=== PATIENT | male | born 1975 | race Caucasian/White ===

== ENCOUNTER → 2017-10-28 08:20 | Outpatient (CLI) | payer OTHER, SELFPAY ==
--- NOTE | 2017-10-28 08:29 | RAD_ITS ---
STUDY: X-RAY - LEFT HAND, ATTENTION FIRST FINGER REASON FOR EXAM: Male, 41 years old. Pain TECHNIQUE: 3 view(s) of the finger were obtained. COMPARISON: None. FINDINGS: Normal metacarpal head. Normal metacarpophalangeal joint. Normal proximal phalanx. Normal middle phalanx. There is a subtle cortical defect on the lateral view within the volar side of the distal phalanx which could potentially represent a nondisplaced fracture. There is mild degenerative arthrosis of the proximal interphalangeal joint. There is mild degenerative arthrosis of the distal interphalangeal joint. There is degenerative change at the carpometacarpal joint of the first digit. There is a suggestion of slight subluxation which may be chronic. RAD/Finger(s) Min 2 Views IMPRESSION: Degenerative change of the first digit from the carpometacarpal joint of the distal interphalangeal joint. Possible cortical variation versus nondisplaced fracture the distal phalanx. Electronically Signed: Gabriela Jean Baptiste MD at 16:58 EDT Tel , Service support ,
[2017-10-28 10:54] LABS: Anion Gap 6 (5-15); BUN 10 mg/dL (7-18); BUN/Creat Ratio 10.6 RATIO (10-20); Calcium,Total 8.8 mg/dL (8.5-10.1); Chloride 104 mmol/L (98-107); Cholesterol 162 mg/dL (200); Creatinine, Serum 0.94 mg/dL (0.70-1.30); EST Glomerular Filtration Rate 93 mL/min (>60); Est Glom Filt Rate - Afr Amer 112 mL/min (>60); Glucose 85 mg/dL (74-106); High Density Lipoprotein 55 mg/dL; Potassium 4.3 mmol/L (3.5-5.1); Sodium Level 140 mmol/L (136-145); Triglycerides 107 mg/dL; Very Low Density Lipoprotein 21 mg/dL (5-40)
== END ==
PROVIDERS: Family Provider Family Medicine; PCP Family Medicine; Visit Provider Family Medicine
DX: Z00.00 Encounter for general adult medical examination without abnormal findings (principal); M18.9 Osteoarthritis of first carpometacarpal joint, unspecified
CPT/HCPCS: 36415; 73140; 80048; 80061

== ENCOUNTER 2018-01-10 07:00 | Outpatient (RCR) | payer OTHER, SELFPAY ==
--- NOTE | 2017-11-29 11:58 | HP.OTEVAL ---
Patient's Visit Information AMOS OSORIO is a 41 year old M, referred to Occupational Therapy by Felicia Arechiga DO, with a diagnosis of CMC OA. Date of Evaluation: 11/29/17 Occupational Therapist: Ramila Beal - Subjective Subjective: Pt., Amos, arrived and noted that no major injury occured to L CMC. He first started noticing pain about 4-5 years ago. 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 He is L handed. Notes that had cortisone shot in September. - Pain Left Hand 1 Pain Intensity Range: 1, 9 - Objective Objective/Observation: No edema at this time. Some thenar atrophy through thenar eminence. Increased pain with fx pinch tasks. Somce increased hyperext of IP joint. Decreased strength of L dominant hand compared to R hand. No edema noted at this time. Concerns: Dropped off order to front desk auxiliary at Dr. Arechiga's office. They are to give to Dr. Peralta to fill out dosage she would like for Amos for iontophoressis. - ROM Wrist: flex 0-85, L 0-76; ext R 0-52, L 0-59 CMC: R 0-20, L 0-16 MP: R 0-56, L 0-57 IP: R 0-60, L -10-47 Radial Abduction: R 0-60, L 0-45 MP: WFL PIP: WFL DIP: WFL - Strength Merchandising Specialist: R 97, L 88 Lateral Pinch: R 24, L 15 Tripod Pinch: R 27, L 14 Tip-to-Tip Pinch: R 18, L 13 Strength Comments: some increased pain with tripod and tip. Educated to stop when feeling pain. - Sensation Sensation Comments: denies numbness and tingling at this time. 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 Goal:: Pt. to have not more than 1/10 pain during fx tasks with us eof splint as needed 4/5 trials 80% of the time by d/c. Goal:: Amos to increased fx pinch grasp to promote increased stability of CMC joint 4/5 trials 80% of the time to promote increased stability and decreased pain to return to PLOF by d/c. Goal:: Amos to be (I) to implement joint protect and hand ergonomics through use of comensatory and adaptive equipment to help promote joint integrity for work and ADl/IADLs to decrease pain by time of d/c. Goal:: Amos to be mod I to complete HEp and adaptations to help promote increased CMC integrity and joint stability 4/5 trials 80% of the time to promote increased performance and decreased pain by d/c. - Rehabilitation General Assessment: Pt., Amos, arrived for OT eval on this date. He exhibits decreased thumb ROM and strength at this time on L dominant side. Some starts of thenar wasting present. OT to focus on protective splinting, strength for CMC support, and pain management to promote increased use of L dominant hand without pain for work and ADl/IADls. Rehabilitation Potential: Good - Anticipated Interventions Anticipated Interventions: A/AAROM/PROM, Strengthening, Triggerpoint Release, Modalities, Orthoses, Joint Protection/Energy Conservation, Ergonomic Education, Fine Motor Coord/Denilson, ADL Training, Education re assistive Equipment, Caregiver Training, Home Program - Visit Plan Frequency: 2x /Week Duration: 4 Weeks General Plan: OT to work on protective splint and compensatory methods to promote increased CMC stability. Lumbrical, thenar eminence, and interossei strength to promote increased stability of CMC and strength of L dominant hand for all ADl/IADls. Will be trialing K-tape during workday to promote normal use of hand with pain management and increased awareness of erogonmic and thumb. TEXT: Thank you for the opportunity to evaluate your patient. For Medicare and Medicare HMO plans, please review the plan of care and approve it. It will need to be FAXED BACK to us at [phone] for Medicare purposes. Please let me know if there are questions or concerns regarding this plan of care. Physician Signature: Date:
--- NOTE | 2017-12-27 07:43 | HP.OTREVAL ---
Felicia Arechiga, DO, It has been my pleasure to treat AMOS OSORIO over the last 9 visits for CMC OA. Please see the progress note below for an update on the occupational therapy plan of care! Subjective: Arrived with no KT tape in place and noted that still getting dull aches. Feels dexamethasone helped more once he took it off he noted thats when I felt the difference. Explained he feels about 75% back to 100%. Objective/Function: Reassessment of L affected thumb completed on this date. ROM is as follows: wrist flexion R 0-75, L 0-80; ext R 0-53, L 0-50; thumb opposition R 0-13, L 0-14; MP flexion R 11-50, R 5-64; IP R 0-48, L -7-25; radial abduction. Strength is as follows: semiconductor packages leak tester R 104, L 91; lateral R 22, L 20; Tripod R 27, L 14; tip pinch R 23, L 16. He has progressed in strength at this time. Progressing towards goals. Plan Frequency: 2x /Week Duration: 4 Weeks Plan: continue POC for 2x 2 weeks to continue dexamethasone treatments. He is completing follow up with Dr. Arechiga Saturday in which Pt. reports he will recieve cortisone injection. Further communication to be completed with Dr. Martínez. Dexamethasone will be suspended post cortisone treatment unless otherwise instructed. Additionally, order for CMC push still needs to be recieved to help Pt. count toward deductible. Goals - Goals Goal:: Amos to increased L dominant semiconductor packages leak tester strength by 15 lbs to promote increased stability of L CMC thumb for work and FMC related tasks 4/5 trials 80% of the time by d/c. Goal:: Pt. to have not more than 1/10 pain during fx tasks with us eof splint as needed 4/5 trials 80% of the time by d/c. Goal:: Amos to increased fx pinch grasp to promote increased stability of CMC joint 4/5 trials 80% of the time to promote increased stability and decreased pain to return to PLOF by d/c. Goal:: Amos to be (I) to implement joint protect and hand ergonomics through use of comensatory and adaptive equipment to help promote joint integrity for work and ADl/IADLs to decrease pain by time of d/c. Goal:: Amos to be mod I to complete HEp and adaptations to help promote increased CMC integrity and joint stability 4/5 trials 80% of the time to promote increased performance and decreased pain by d/c. Anticipated Interventions Anticipated Interventions: A/AAROM/PROM, Strengthening, Triggerpoint Release, Modalities, Orthoses, Joint Protection/Energy Conservation, Ergonomic Education, Fine Motor Coord/Denilson, ADL Training, Education re assistive Equipment, Caregiver Training, Home Program Please do not hesitate to contact me at [phone] by phone or if you have questions or concerns regarding this new plan of care! Sincerely, Ramila Beal
--- NOTE | 2017-12-27 07:43 | HP.OTCOM ---
OT Communication Note 12/27/[address] Felicia Arechiga, DO Recent re-evaluation completed for Gilles Hu. Please refer to re-evaluation for additional measurements for ROM and strength. Gilles has received two and will have a total of three dexamethasone treatments prior to his follow up visit with Dr. Arechiga, SaturdayJanuary 01. He reports some increased relief post first dexamethasone treatment. Once receiving cortisone shot these treatments will be discontinued unless otherwise instructed. Additionally, Gilles has had success with completion of KT taping to promote support to CMC while at work and home. Handout and instructed has been provided on where to purchase such take around the local area. He may also benefit from Push CMC brace to complete wearing at home. He has also been educated on this brace and handout provided. If agreeable please provide him with order for brace at appointment as he would like purchase of brace to be counted towards deductible. Sincerely, Ramila Beal, OTR/L Contact Information
--- NOTE | 2017-12-27 07:51 | HP.OTCOM_ITS ---
OT Communication Note 12/27/[address] Felicia Arechiga, DO Recent re-evaluation completed for Gilles Hu. Please refer to re- evaluation for additional measurements for ROM and strength. Gilles has received two and will have a total of three dexamethasone treatments prior to his follow up visit with Dr. Arechiga, SaturdayJanuary 01. He reports some increased relief post first dexamethasone treatment. Once receiving cortisone shot these treatments will be discontinued unless otherwise instructed. Additionally, Gilles has had success with completion of KT taping to promote support to CMC while at work and home. Handout and instructed has been provided on where to purchase such take around the local area. He may also benefit from Push CMC brace to complete wearing at home. He has also been educated on this brace and handout provided. If agreeable please provide him with order for brace at appointment as he would like purchase of brace to be counted towards deductible. Sincerely, Ramila Beal, OTR/L Contact Information
--- NOTE | 2018-01-10 07:50 | HP.OTDCSUM ---
HP - OT D/C Summary It has been my pleasure to treat GILLES OSORIO under orders from Felicia Arechiga DO, for the diagnosis of CMC OA for a total of 13 visit(s). Please see the following information for a summary of their discharge status. - Overall Improvement % Improvement: 80 - Objective Objective/Function: Completed reassessment. He has progressed from both inital and re-eval. Measurements are as follows: ROM wrist flexion R 0-71, L 0-81; ext R 0-50, L 0-46; thumb radial abduction R 0-61, L 0-50; opposition R 0-15, L 0-15. Strength measurements are as follows: R 120, L 110; lateral pripod R 26, L 21; tripod pinch R 24, L 20; tip pinch R 23, L 18 lbs. Still slight pain with fx pinch patterns. 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 Goal:: Pt. to have not more than 1/10 pain during fx tasks with us eof splint as needed 4/5 trials 80% of the time by d/c. Goal:: Gilles to increased fx pinch grasp to promote increased stability of CMC joint 4/5 trials 80% of the time to promote increased stability and decreased pain to return to PLOF by d/c. Goal:: Gilles to be (I) to implement joint protect and hand ergonomics through use of comensatory and adaptive equipment to help promote joint integrity for work and ADl/IADLs to decrease pain by time of d/c. Goal:: Gilles to be mod I to complete HEp and adaptations to help promote increased CMC integrity and joint stability 4/5 trials 80% of the time to promote increased performance and decreased pain by d/c. - Plan Plan: Pt. to be d/c'd today. Completed 6 dexamethosone treatments. He is to follow up with Dr. Arechiga. Called Dr. Arechiga's office a few weeks ago and if she feels comfortable he would benefit from script for CMC push brace to support CMC while around home. He can wear brace at home and KT tape for work for additional suppor tof CMC. He verbalized understanding of all topics. Handouts provided. Noted KT tape in truck and will start using. Variable carryover on own during therapy. - D/C Information Discharge Comments: Gilles has completed 12 visits (excluding evaluation) for therapy. Thumb and strength fo L dominant hand has progress. Thumb remains slightly painful with typically 1/10 pain with pinch but continues to complete all ADL/IADL tasks. Notes 80% imporvementpst OT and 6 dexamethsone treatments. He has had limited carryover of KT tape but recently reports getting roll. Noted improvement when OT completed taping prior to work tasks. He has handout to complet taping on his own. If there are questions or concerns regarding this patient's occupational therapy, please fell free to call me at [phone]. Thank you for the referral of this patient. Sincerely, Ramila Beal
== END 2018-01-10 14:16 | disposition home or self-care (01) ==
LOC: OT 07:00
PROVIDERS: Family Provider Family Medicine; PCP Family Medicine; Visit Provider Orthopaedic Surgery
DX: M18.12 Unilateral primary osteoarthritis of first carpometacarpal joint, left hand (principal)
CPT/HCPCS: 97035; 97110; 97166; 97168; 97530

== ENCOUNTER 2018-02-24 23:54 | Emergency (ER) | payer OTHER, SELFPAY ==
[2018-02-24 23:54] VITALS: BP 139/86; PULSE 79; RESP 18; TEMP 36.8; O2SAT 98; BMI 26.3
--- NOTE | 2018-02-25 00:27 | CT_ITS ---
STUDY: CT ABDOMEN AND PELVIS WITHOUT CONTRAST REASON FOR EXAM: Male, 42 years old. Right flank pain RADIATION DOSAGE (If Supplied By Facility): CTDIvol = ( 7.67 ) mGy, DLP = ( 396.58 ) mGycm TECHNIQUE: Transaxial images were obtained from the dome of the diaphragm to the symphysis pubis without oral contrast, and without intravenous contrast. Sagittal and coronal images were reconstructed. Individualized dose optimization techniques were used for this CT. COMPARISON: None. FINDINGS: There is a slight focal right lower lobe consolidation suspicious for pneumonia. The visualized portions of the heart are within normal limits. Normal liver. Normal gallbladder and extrahepatic biliary system. Normal spleen. Normal pancreas. Normal bilateral adrenal glands. Normal right kidney. Normal left kidney. Normal visualized stomach. There is minimal distention of the small bowel. There is mild wall thickening of the small bowel in the left upper quadrant image #56 formal views. There is abundant stool in the colon. The appendix is visualized and appears normal. There is diffuse atherosclerotic calcification of the abdominal aorta, without a demonstrated aneurysm. Normal inferior vena cava. Normal retroperitoneum. The bladder is distended. The bladder measures 11.1 x 9.8 x 11.7 cm. Normal visualized prostate gland. There is a small umbilical hernia containing fat. There is degenerative change of the lumbar spine significant L4-L5 with facet arthropathy and disc space narrowing. There is mild/moderate neural foramina narrowing. CT/Abdomen/Pelvis without Cont IMPRESSION: No evidence of renal ureteral bladder calculi. Constipation. Right lower lobe consolidation suspicious for pneumonia. No evidence of appendicitis. Degenerative change lumbar spine. Incidental visualization mild thickening of the wall of the small bowel which a follow-up contrast study would be suggested. Consider mild enteritis versus peristalsis cannot entirely exclude focal underlying atypia. N.B. : The above information has been verbally conveyed by Gabriela Jean Baptiste MD to Deepak Palmer , Covering Physician, on 02/25/2018 01:22:14 (ET). Electronically Signed: Gabriela Jean Baptiste MD at 1:17 EDT Tel , Service support , N.B. : The above information has been verbally conveyed by Gabriela Jean Baptiste MD to Deepak Palmer , [facility] Physician, on 02/25/2018 01:22:14 (ET).
--- NOTE | 2018-02-25 00:29 | ED.DCSUM_ITS ---
- ER Visit Summary Date of Service: 02/25/18 Chief Complaint: [] Right flank pain History of Present Illness: The patient is a 42 M presents with right flank pain that started 2 hours ago. He awoke with it. Continuous sharp pain. Current severity is moderate. It is relieved somewhat by putting pressure on it. Denies nausea vomiting or diarrhea. No home treatment. Denies any urinary symptoms. No trauma. He is on Fondoparinoux DVTs in the past. He gives himself daily injections. He has never had a recent blood clot. He has never had a kidney stone. Physical Examination: [] Vital signs reviewed General: Well-nourished well-developed Head: Normocephalic atraumatic Eyes: Pupils equal round and reactive to light extraocular movements intact ENT: TMs clear no hemotympanum no trauma Neck: Nontender full range of motion Cardiovascular: Regular rate rhythm no murmurs normal S1-S2 Respiratory: No distress clear to auscultation bilaterally chest nontender Abdomen: Soft nontender nondistended normal bowel sounds no masses Back: Nontender no CVA tenderness Extremities: Nontender active range of motion ?4 extremities no trauma Skin: Normal color no trauma Neuro alert oriented cranial nerves II through XII intact normal strength sensation reflexes Test Results: [] Emergency Department Course and Treatment: [] Patient given IV fluids, Zofran, Toradol, morphine. Lab work and CT abdomen pelvis obtained. CT abdomen pelvis showed questionable infiltrate right lower lobe. Lab work showed no acute abnormalities. Patient given IV fluid bolus. Pain in her control. CT Jenifer of the chest shows right-sided PEs. No heart strain. No central embolism. Patient resting comfortably on reevaluation. Discussed with the hospitalist who happens to be the patient's PCP. He would like the patient to follow-up as an outpatient with him in the office (Dr. Espinal). He is going to help set up an IVC filter placement with vascular surgery as an outpatient. The patient is hemodynamically stable. Pulse ox 98%. Heart rate 79. I do not feel he needs to be admitted neither does his family doctor/hospitalist. Will be discharged on Eliquis. We will switch him over to this therapy. He will stop the injectable. 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 He will return if he worsens. Given a short course of Percocet. Treatment Plan: [] Disposition: [] Impression: [] Right-sided pulmonary embolism This note was generated with [employer] dictation software. It may contain incorrect words, spelling, and punctuation that were not noted in review of the chart prior to signing ED Disposition - Plan for ED Patient: Chief Complaint: Flank Pain Prescriptions: Apixaban [Eliquis] 5 mg PO BID #74 tab Referrals: Edd Ross MD [Primary Care Provider] -
[2018-02-25] MEDS: Morphine 4 MG/ML Syringe IV (00:44)
[2018-02-25] MEDS: Ondansetron 4 MG/2 ML Vial IV (00:45)
[2018-02-25] MEDS: Ketorolac 30 MG/ML Syringe IV (00:45)
[2018-02-25] MEDS: 0.9% Normal Saline 1,000 ML 250 ML IV (00:46)
[2018-02-25 00:51] LABS: Absolute Lymphocyte Count 1.83 X10^3/ul (0.83-4.51); Absolute Neutrophil Count 3.5 X10^3/uL (2.0-7.7); Basophil# 0.02 X10^3/uL; Basophil% 0.3 % (0-1); Eosinophil# 0.09 X10^3/uL; Eosinophils% 1.5 % (0-5); Hematocrit 40.5 % (40-54); Hemoglobin 14.2 g/dl (13.0-16.5); Lymphocyte # 1.83 X10^3/ul (4.0); Lymphocyte % 29.8 % (19-41); Mean Corp Hgb Conc 35.1 g/gl (32-36); Mean Corpuscular Hgb 33.2 pg (27.0-32.0); Mean Corpuscular Volume 94.6 fL (80-94); Monocyte# 0.67 X10^3/uL; Monocyte% 10.9 % (0-10); Neutrophil # 3.52 X10^3/uL (2.7-7.7); Neutrophil % 57.3 % (47-70); Platelet Count 167 K/mm3 (150-450); RBC Distribution Width CV 12.3 % (11.6-14.6); Red Blood Count 4.28 M/mm3 (4.6-6.2); White Blood Count 6.1 K/mm3 (4.4-11.0)
[2018-02-25 00:56] LABS: POSITIVE COUNT NO; POSITIVE DIFFERENTIAL NO; POSITIVE MORPHOLOGY NO
[2018-02-25 01:09] LABS: Anion Gap 8 (5-15); BUN 12 mg/dL (7-18); BUN/Creat Ratio 12.3 RATIO (10-20); Calcium,Total 8.4 mg/dL (8.5-10.1); Chloride 105 mmol/L (98-107); Creatinine, Serum 0.97 mg/dL (0.70-1.30); EST Glomerular Filtration Rate 89 mL/min (>60); Est Glom Filt Rate - Afr Amer 108 mL/min (>60); Estimated Creatinine Clearance 106.67 ml/min; Glucose 91 mg/dL (74-106); Sodium Level 141 mmol/L (136-145)
--- NOTE | 2018-02-25 01:41 | CT_ITS ---
STUDY: CTA CHEST REASON FOR EXAM: Male, 42 years old. Back pain RADIATION DOSAGE (If Supplied By Facility): CTDIvol = ( 14.38 ) mGy, DLP = ( 433.63 ) mGycm TECHNIQUE: The examination was performed with the intravenous administration of 100ML ml of Isovue 370 contrast material. Post-processing of the angiographic images was performed, with multiplanar reformation and 3D reconstruction. Individualized dose optimization techniques were used for this CT. COMPARISON: None. FINDINGS: Thoracic aorta is normal in caliber. There is NO aneurysm or dissection. The heart size is normal. There is NO pericardial effusion. There are large pulmonary emboli in the mid and distal branches of the RIGHT pulmonary artery. There are NO obvious LEFT pulmonary emboli. There are borderline mediastinal and hilar lymph nodes. There are infiltrates in the RIGHT lower lung. Lungs are well expanded. There is mild COPD. There is NO effusion or pneumothorax. There are scattered bilateral subcentimeter noncalcified pulmonary nodules which could be granulomas. The thoracic spine, sternum and ribs are intact. CT/CTA Chest W/WO Contrast IMPRESSION: There are large pulmonary emboli in the mid and distal branches of the RIGHT pulmonary artery. There are NO obvious LEFT pulmonary emboli. There are infiltrates in the RIGHT lower lung. There are scattered bilateral subcentimeter noncalcified pulmonary nodules which could be granulomas. N.B. : The above information has been verbally conveyed by Isael Millan MD to Deepak Palmer Covering Physician, on 02/25/2018 03:30:53 (ET). Electronically Signed: Isael Millan MD at 2:59 EDT , Service support , N.B. : The above information has been verbally conveyed by Isael Millan MD to Deepak Palmer Covering Physician, on 02/25/2018 03:30:53 (ET).
[2018-02-25] MEDS: 0.9% Normal Saline 1,000 ML 1000 ML IV (01:50)
--- NOTE | 2018-02-25 03:15 | ED.DEP ---
ED Disposition - Plan for ED Patient: Disposition: Home or Assisted Living Chief Complaint: Flank Pain Instructions: Pulmonary Embolism Prescriptions: Oxycodone HCl/Acetaminophen [Percocet 5/325] 1 tab PO Q6H PRN PRN 3 Days #12 tab PRN Reason: Pain Apixaban [Eliquis] 5 mg PO BID #74 tab Referrals: Edd Ross MD [Primary Care Provider] - Von Vitale MD [STAFF PHYSICIAN] -
[2018-02-25 03:34] VITALS: BP 123/78; PULSE 65; O2SAT 97
[2018-02-25] MEDS: APIXABAN 5 MG TABLET 10 MG PO (03:40)
== END 2018-02-25 03:45 | disposition home or self-care (01) ==
PROVIDERS: Emergency Provider Emergency Medicine; Family Provider Family Medicine; PCP Family Medicine
DX: I26.99 Other pulmonary embolism without acute cor pulmonale (principal); Z86.718 Personal history of other venous thrombosis and embolism; Z79.01 Long term (current) use of anticoagulants; Z72.0 Tobacco use
CPT/HCPCS: 71275; 74176; 80048; 85025; 96361; 96374; 96375; 99282; J7030; Q9967; A4216; J2405

== ENCOUNTER 2018-02-25 12:35 | Emergency (ER) | payer OTHER, SELFPAY ==
[2018-02-25 12:37] VITALS: BP 127/71; PULSE 80; RESP 16; TEMP 37.2; O2SAT 97; BMI 29.4
[2018-02-25 14:37] VITALS: PULSE 68; RESP 20; O2SAT 96
--- NOTE | 2018-02-25 14:39 | ED.VISSUMM ---
- ER Visit Summary Date of Service: 02/25/18 Chief Complaint: Right-sided chest pain, new diagnosis of pulmonary embolism History of Present Illness: The patient is a 42 M who was diagnosed with right sided pulmonary emboli this morning who presents with continued chest pain and inability to follow-up with the vascular surgeon. Patient states he was discharged on Eliquis and had the dose given to him this morning. He called the vascular surgeon to whom he was referred and was told that surgeon only does varicose veins. Patient states he spoke to the nurse that his doctor's office and was advised to come back to the emergency department. Patient has no change in his condition. No shortness of breath but worsening pain with deep inspiration. Pain is currently well controlled with Percocet the patient took prior to arrival. 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 Physical Examination: Vital signs: afebrile, hemodynamically stable, no hypoxia on room air General: well nourished, well developed, in no distress Skin: warm, dry, no rash, no pallor HEENT: normocephalic and atraumatic; PERRL, EOMI, moist mucous membranes Cardiovascular: regular rate and rhythm without murmurs, no peripheral edema, 2+ pulses all distal extremities Respiratory: No increased work of breathing, lungs are clear to auscultation bilaterally, no rales, rhonchi or wheezing Abdominal: Abdomen is soft, nontender with normoactive bowel sounds, no guarding or rebound, no masses MSK: Moves all extremities, no deformities, normal strength Neuro: Awake and alert, oriented ?4. No facial droop, sensation and motor function intact and symmetric Test Results: [] Emergency Department Course and Treatment: Patient was offered and declined pain medication at this time. He has no complaints at this time other than a low level of right-sided chest pain that is currently well controlled with his home Percocet. Patient has no tachycardia or hypoxia on exam. He is resting comfortably in bed. He came to the emergency department solely because he could not get follow-up with a surgeon for IVC filter placement. Patient was discussed with Dr. Santamaria, loan operations manager for Dr. Espinal, to obtain a new surgery referral. She requested patient be referred to Dr. Reyes. he was then discussed with Dr. Reyes, who states patient can make an appointment for tomorrow, and the earliest he may be able to do the IVC is on . However he wants to discuss the patient with the patient's electroencephalographic technologist first to make sure an IVC filter is the appropriate treatment. Patient's electroencephalographic technologist information (Dr. Lockett at [facility] [place]) was obtained from the patient and conveyed to Dr. Reyes's office. Discussed with patient the importance of medication compliance, and he already has his Eliquis prescription filled. He will take it as prescribed. We discussed return precautions. Patient discharged home. Treatment Plan: [] Disposition: [] Impression: Pulmonary emboli, right side, subsequent visit This note was generated with [employer] dictation software. It may contain incorrect words, spelling, and punctuation that were not noted in review of the chart prior to signing ED Disposition - Plan for ED Patient: Disposition: Home or Assisted Living Chief Complaint: Chest Other Instructions: Pulmonary Embolism, ED DVT Referrals: Edd Ross MD [Primary Care Provider] - As Needed Oren Reyes MD [STAFF PHYSICIAN] - 1 Day Additional Instructions: Take the Eliquis exactly as prescribed. Call Dr. Reyes, the surgeon, this afternoon to make an appointment for tomorrow. If you have any worsening of your condition or any new concerning symptoms, please return immediately to the emergency department for another evaluation.
--- NOTE | 2018-02-25 15:19 | NURSING ---
CALLED [facility] FOR HEMOLOGY TALKED TO JULITO IN HIM CALLED DR Shanna QUISPE OFFICE WITH DR NAME IT IS DR MONTSE DODSON
--- NOTE | 2018-02-25 15:26 | ED.DEP ---
ED Disposition - Plan for ED Patient: Disposition: Home or Assisted Living Chief Complaint: Chest Other Instructions: ED DVT, Pulmonary Embolism Referrals: Oren Reyes MD [STAFF PHYSICIAN] - 1 Day Edd Ross MD [Primary Care Provider] - As Needed Additional Instructions: Take the Eliquis exactly as prescribed. Call Dr. Reyes, the surgeon, this afternoon to make an appointment for tomorrow. If you have any worsening of your condition or any new concerning symptoms, please return immediately to the emergency department for another evaluation.
[2018-02-25 15:34] VITALS: BP 114/76; PULSE 73; RESP 19; O2SAT 96
== END 2018-02-25 15:37 | disposition home or self-care (01) ==
PROVIDERS: Emergency Provider Emergency Medicine; Family Provider Family Medicine; PCP Family Medicine
DX: I26.99 Other pulmonary embolism without acute cor pulmonale (principal); Z86.718 Personal history of other venous thrombosis and embolism; Z79.01 Long term (current) use of anticoagulants
CPT/HCPCS: 99282

== ENCOUNTER 2019-04-20 04:34 | Emergency (ER) | payer OTHER, SELFPAY ==
[2019-04-20 04:35] VITALS: BP 134/98; PULSE 83; RESP 16; TEMP 36.9; O2SAT 98; BMI 25.7
[2019-04-20 04:40] VITALS: O2SAT 98
--- NOTE | 2019-04-20 04:46 | CT_ITS ---
We are attempting to reach an attending provider to discuss findings. An addendum with communication details will be sent when the communication is complete. STUDY: CTA CHEST REASON FOR EXAM: Male, 43 years old. Right-sided chest pain, history of PE and DVT. RADIATION DOSAGE (If Supplied By Facility): CTDIvol = ( 12.61 ) mGy, DLP = ( 480.28 ) mGycm TECHNIQUE: The examination was performed with the intravenous administration of 100 IV Isovue 370. Post-processing of the angiographic images was performed, with multiplanar reformation and 3D reconstruction. Individualized dose optimization techniques were used for this CT. COMPARISON: CT chest 02/25/2018 FINDINGS: There are filling defects in the bilateral inferior pulmonary arteries left greater than right.. Normal thoracic aorta and visualized great vessels. There is no demonstrated aortic dissection. Normal heart and pericardium. Normal mediastinum. Right greater than left hilar soft tissue suspicious for lymphadenopathy, more pronounced on current exam. Normal visualized trachea and bronchi. The lungs are well expanded. There is new airspace disease along the peripheral right middle lobe lateral segment with alveolar distribution and appearance, pleural thickening, volume loss along the bilateral peripheral lower lobes, peripheral airspace opacification in the lingula, increased since previous exam. No cavitary lesion or central aeration to suggest infarct detected. There is stable mild symmetric paraseptal emphysema. There are multiple stable nodular densities in the right upper lobe 0.3 cm image 186 image 190, vague nodular density right upper lobe superior to the minor fissure 0.5 cm image 149, 0.4 cm right middle lobe less than 0.4 cm nodules in the left lower lobe, nodules associated with the left major fissure, tubular stable noncalcified soft tissue 0.4 x 0.8 cm posterior medial right upper lobe image 182. Pleural thickening or trace effusion bilaterally. Normal chest wall structures. Age-appropriate osseous structures. Normal visualized upper abdomen. CT/CTA Chest W/WO Contrast IMPRESSION: Bilateral inferior pulmonary arterial embolic disease. Airspace disease with peripheral distribution as above possibly related to pulmonary emboli, no cavitation or infarct seen at this time. Stable paraseptal emphysema, multiple noncalcified scattered parenchymal nodules. Electronically Signed: Quyen Gastelum MD at 5:57 EDT , Service support ,
--- NOTE | 2019-04-20 04:46 | EKG12_ITS ---
Test Reason : SOB Blood Pressure : / mmHG Vent. Rate : 077 BPM Atrial Rate : 077 BPM P-R Int : 144 ms QRS Dur : 090 ms QT Int : 362 ms P-R-T Axes : 038 -24 036 degrees QTc Int : 409 ms Normal sinus rhythm Leftward Gatzke Confirmed by BLANCHE ROMAN, MIGUEL ([id number]), newspaper photo editor IRLANDA CUMMINGS ([id number]) on 04/21/2019 11:40:29 AM Referred By: EDU Confirmed By:MIGUEL MANCIA MD
--- NOTE | 2019-04-20 04:47 | ED.DCSUM_ITS ---
History of Present Illness Chief Complaint: Shortness of Breath Informant: Patient Narrative: Stated he developed right-sided chest pain yesterday morning. It was not significantly bad but then yesterday evening at 11:00 approximately 6 hours ago she started having pretty significant sharp pleuritic right-sided chest pain. He has had this in the past with a pulmonary embolism. I saw him last summer and he was diagnosed with a pulmonary embolism while taking fondaparineaux. 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 He has had no problems until today. No home treatment. Denies any shortness of breath but states hard to take a deep breath due to pain. Patient denies any cardiac risk factors except for a 20-year pack smoking history. Not have an IVC filter. He does have protein C deficiency as well as factor V Leiden that predisposes him to blood clots. He is only however had one PE. He has had multiple DVTs in the past. She denies any recent long trips. Past Medical History - Allergies and Home Meds Allergies/Adverse Reactions: Allergies No Known Allergies Allergy (Verified 04/20/19 04:37) Prior records reviewed: Yes Past Medical History: - - Ulnar embolism, DVT Surgical History: noncontributory Smoking Status: Former smoker Alcohol: None Drugs: None Review of Systems General: Denies: Chills, Fever, Sweats Eyes: Denies: Visual changes - bilaterally, Diplopia ENT: Denies: Rhinorrhea, Sore throat Cardiovascular: Reports: Chest pain. Denies: Palpitations Respiratory: Denies: Dyspnea, Cough, Dyspnea on exertion Gastrointestinal: Denies: Abdominal pain, Nausea, Vomiting, Diarrhea, Melena, Hematochezia Genitourinary: Denies: Dysuria, Hematuria, Frequency Musculoskeletal: Denies: Back pain, Extremity Pain Skin: Denies: Rash, Wounds Neurological: Denies: Headache, Weakness, Numbness Physical Exam Vital Signs/Narrative: Vital Signs Temp Pulse Resp BP Pulse Ox 04/20/19 04:35 98.4 F 83 16 134/98 H 98 General: Well nourished, Well developed, No Acute Distress Head: Normocephalic, Atraumatic Eyes: Perrl, EOMI ENT: Moist mucous membranes, No rhinorrhea Neck: Supple, Nontender Cardiovascular: Regular rate, Regular rhythm, No murmurs Respiratory: No distress, CTA bilaterally, Chest nontender Abdomen: Soft, Nontender, Nondistended, Normal bowel sounds Back: Nontender, Normal Inspection Extremities: Nontender, No edema Skin: Normal color, No rash Neurological: Alert, Oriented x3, Cranial nerves II-XII grossly intact, Normal Strength, Normal Sensation Psychological: Normal affect, Normal Mood Diagnostic/Tx/Re-eval - Medical Decision Making Lab work EKG CTA of the chest obtained. Patient given IV fluids and a dose of morphine IV. Lab work shows no acute abnormalities including CBC BMP and negative troponin. CT Jenifer of the chest obtained shows bilateral inferior lower bullae left greater than right. Patient remains hemodynamically stable. Is not tachycardic. Normal pulse ox on room air. Patient stated he has not missed any blood thinners. Discussed with the hospitalist. Her surgeon Dr. Reyes who normally does IVC filters is out of town. Therefore the patient will need to be transferred. The patient would like to be transferred to [facility]. He has all care insurance. He does not want to go to the [place] as he is [place] insurance. Will be started on a heparin bolus followed by drip for treatment of his pulmonary embolism - Critical Care Time Critical care time (excluding procedures): 30-74 minutes ED Disposition - Plan for ED Patient: Instructions: Pulmonary Embolism
[2019-04-20 04:52] LABS: Absolute Lymphocyte Count 2.04 X10^3/uL (0.83-4.51); Absolute Neutrophil Count 3.9 X10^3/uL (2.0-7.7); Basophil# 0.04 X10^3/uL; Basophil% 0.6 % (0-1); Eosinophil# 0.12 X10^3/uL; Eosinophils% 1.8 % (0-5); Hemoglobin 15.6 g/dL (13.0-16.5); Lymphocyte # 2.04 X10^3/ul (4.0); Lymphocyte % 31.1 % (19-41); Mean Corp Hgb Conc 34.7 g/dL (32-36); Mean Corpuscular Hgb 33.3 pg (27.0-32.0); Mean Corpuscular Volume 96.2 fL (80-94); Mean Platelet Vol. 8.9 fl (6.2-12.0); Monocyte# 0.51 X10^3/uL; Monocyte% 7.8 % (0-10); NRBC Flagged by Analyzer 0 % (0-5); Neutrophil # 3.85 X10^3/uL (2.7-7.7); Neutrophil % 58.5 % (47-70); Platelet Count 204 K/mm3 (150-450); RBC Distribution Width CV 12.3 % (11.6-14.6); RBC Distribution Width SD 43.6 fl (35.1-43.9); Red Blood Count 4.68 M/mm3 (4.6-6.2); White Blood Count 6.6 K/mm3 (4.4-11.0)
[2019-04-20] MEDS: morphine 8 MG/ML Syringe IV (04:52)
[2019-04-20] MEDS: 0.9% Normal Saline 1,000 ML 1000 ML IV (04:53)
[2019-04-20 04:54] VITALS: O2SAT 98
[2019-04-20 05:06] LABS: Anion Gap 7 (5-15); BUN 10 mg/dL (7-18); BUN/Creat Ratio 9.8 RATIO (10-20); Calcium,Total 8.5 mg/dL (8.5-10.1); Chloride 107 mmol/L (98-107); Creatinine, Serum 1.02 mg/dL (0.70-1.30); EST Glomerular Filtration Rate 84 mL/min (>60); Est Glom Filt Rate - Afr Amer 101 mL/min (>60); Estimated Creatinine Clearance 100.38 ml/min; Glucose 110 mg/dL (74-106); Potassium 4.3 mmol/L (3.5-5.1); Sodium Level 143 mmol/L (136-145)
[2019-04-20 06:26] VITALS: BP 131/86; PULSE 81; RESP 20; O2SAT 97
--- NOTE | 2019-04-20 07:45 | ED.RN ---
called pharmacy regarding pharmacy.
[2019-04-20 07:46] LABS: Partial Thromboplast Time 35.2 Seconds (24.1-36.2)
[2019-04-20] MEDS: HEPARIN/D5w 25,000 UNITS 25,000 UNITS/250 ML IV.SOLN. 12 UNITS IV (07:57)
[2019-04-20] MEDS: Heparin Injection (Vial) 5,000 UNIT/ML VIAL 6000 UNIT IV (07:58)
[2019-04-20 08:01] VITALS: BP 118/86; PULSE 65; RESP 18; O2SAT 98
[2019-04-20 08:03] VITALS: BP 118/86; PULSE 57; RESP 16; O2SAT 97
--- NOTE | 2019-04-20 08:45 | ED.RN ---
EMS IN DEPARTMENT.
== END 2019-04-20 08:56 | disposition short-term general hospital (02) ==
PROVIDERS: Emergency Provider Emergency Medicine; Family Provider Family Medicine; PCP Family Medicine
DX: I26.99 Other pulmonary embolism without acute cor pulmonale (principal); D68.59 Other primary thrombophilia; D68.51 Activated protein C resistance; Z86.718 Personal history of other venous thrombosis and embolism; Z87.891 Personal history of nicotine dependence; Z86.711 Personal history of pulmonary embolism; Z79.01 Long term (current) use of anticoagulants
CPT/HCPCS: 71275; 80048; 84484; 85025; 85730; 93005; 96361; 96374; 96375; 99285; Q9967; A4216

== ENCOUNTER 2019-04-28 09:15 | Observation (INO) | payer OTHER, SELFPAY ==
[2019-04-28] VITALS (9 sets, daily range): BP systolic 107–130; BP diastolic 69–84; PULSE 63–94; RESP 12–23; TEMP 36.6–37.6; O2SAT 93–99; BMI 25.9; BMI 25.7; BMI 25.8
--- NOTE | 2019-04-28 09:23 | EKG12_ITS ---
Test Reason : SOB Blood Pressure : / mmHG Vent. Rate : 072 BPM Atrial Rate : 072 BPM P-R Int : 138 ms QRS Dur : 096 ms QT Int : 372 ms P-R-T Axes : 024 -21 008 degrees QTc Int : 407 ms Normal sinus rhythm Minimal voltage criteria for LVH, may be normal variant Borderline ECG Confirmed by RUBEN NASH ([id number]), web content editor TJ OSORIO ([id number]) on 05/04/2019 2:26:49 PM Referred By: Karime Gonzalez Confirmed By:RUBEN NASH
--- NOTE | 2019-04-28 09:25 | ED.VIS.GEN ---
History of Present Illness Chief Complaint: Shortness of Breath Informant: Patient Onset: Yesterday Context: Gradual Onset Timing: Continuous Current Severity: Moderate Maximum Severity: Moderate Narrative: The patient presents to the emergency department with left upper back pain and dyspnea. The patient was recently diagnosed with bilateral pulmonary emboli. He has a history of protein C and factor V deficiency. He was on fondaparinux for time. He was then switched to Eliquis. He presented just over a week ago and was found to have bilateral pulmonary emboli. He ended up being transferred to [place]. His anticoagulants were changed to heparin drip and transitioned back to Arixtra. He is been doing subcutaneous Arixtra every 12 hours. He has not missed any doses. He states when he was discharged on , his pain was controlled. Over the past 48 hours, the pain is shifted more towards the left side when he had it mostly in the right before. He denies being more short of breath, just having increasing pain. He denies any trauma. He had a scant nonproductive cough. He denies any fevers or chills. Prior similar symptoms: Yes Recent Illness/Hospitalization: Yes Past Medical History - Allergies and Home Meds Allergies/Adverse Reactions: Allergies No Known Allergies Allergy (Verified 04/20/19 04:37) Primary Care Physician: Edd Ross MD [Primary Care Provider] - Prior records reviewed: Yes Past Medical History: - Surgical History: noncontributory Smoking Status: Never smoker Review of Systems General: Denies: Chills, Fever, Sweats Eyes: Denies: Visual changes - bilaterally, Diplopia ENT: Denies: Rhinorrhea, Sore throat Cardiovascular: Reports: Chest pain Respiratory: Reports: Dyspnea Gastrointestinal: Denies: Abdominal pain, Nausea, Vomiting, Diarrhea, Melena, Hematochezia Genitourinary: Denies: Dysuria, Hematuria, Frequency Musculoskeletal: Denies: Back pain, Extremity Pain Skin: Denies: Rash, Wounds Neurological: Denies: Headache, Weakness, Numbness Physical Exam Vital Signs/Narrative: Vital Signs Temp Pulse Resp BP Pulse Ox 04/28/19 09:16 98.2 F 94 22 H 130/78 H 93 Inital Vital Signs reviewed: Yes General: Well nourished, Well developed, No Acute Distress Head: Normocephalic, Atraumatic Eyes: Perrl, EOMI ENT: Moist mucous membranes, No rhinorrhea Neck: Supple, Nontender Cardiovascular: Regular rate, Regular rhythm, No murmurs Respiratory: No distress, CTA bilaterally, Chest nontender Abdomen: Soft, Nontender, Nondistended, Normal bowel sounds Back: Nontender, Normal Inspection Extremities: Nontender, No edema Skin: Normal color, No rash Neurological: Alert, Oriented x3, Cranial nerves II-XII grossly intact, Normal Strength, Normal Sensation Psychological: Normal affect, Normal Mood Diagnostic/Tx/Re-eval Chest X-Ray - ED: 2 View, Normal, Heart, Mediastinum, Right Infiltrate, Left Infiltrate Clinical Impression(s) from Imaging Studies Chest X-Ray 04/28/19 10:12 IMPRESSION: Bibasilar infiltrates worse on the left side with small bilateral effusions. Electronically Signed: Yahir Monreal, at 10:47 EDT , Service support , Abnormal Lab Results 04/28/19 04/28/19 04/28/19 09:23 09:23 09:23 WBC 6.7 RBC 4.68 Hgb 15.2 Hct 44.0 MCV 94.0 MCH 32.5 H MCHC 34.5 RDW Std Deviation 41.3 RDW Coeff of Jj 11.9 Plt Count 223 MPV 8.6 Immature Gran % (Auto) 0.300 Neut % (Auto) 65.7 Lymph % (Auto) 23.4 Bar[place] % (Auto) 8.5 Eos % (Auto) 1.5 Baso % (Auto) 0.6 Absolute Neuts (auto) 4.4 Absolute Lymphs (auto) 1.58 Nucleated RBC % 0 Sodium 141 Potassium 4.3 Chloride 104 Carbon Dioxide 30.0 Anion Gap 7 BUN 16 Creatinine 1.10 Estim Creat Clear Calc 93.08 Est GFR (MDRD) Af Amer 93 Est GFR (MDRD) Non-Af 77 BUN/Creatinine Ratio 14.5 Glucose 90 Calcium 9.0 Total Bilirubin 0.50 AST 13 L ALT 31 Alkaline Phosphatase 98 Troponin I < 0.015 B-Natriuretic Peptide < 2.0 Total Protein 8.2 Albumin 3.7 Globulin 4.5 H Albumin/Globulin Ratio 0.8 L - Rhythm Strip Rhythm Strip: Sinus Rhythm Rate: 90 Ectopy: None - EKG Initial EKG Interpretation: Sinus Rhythm, No Acute Injury Pattern, - - Rate of 72. Minimal voltage. Prior: Unchanged - Medical Decision Making The patient presents to the emergency department chest pain and shortness of breath. He had recent diagnosis of pulmonary embolus. He had tachypnea and very shallow respirations on arrival. He was very uncomfortable. He has been compliant with his anticoagulants. EKG was obtained which showed sinus rhythm without acute ischemic change. Screening labs are relatively unremarkable. His x-ray demonstrates bilateral lower lobe infiltrates, but I do feel he do these are more likely lung infarct as the patient has not had fever, chills, and really no cough. With multiple doses of analgesics, he is more comfortable, but cannot ambulate without tachypnea or the sensation of dyspnea. I do feel that the safest thing would be to observe him for pain control. Patient was discussed with the hospitalist. Impression 1. Bilateral PE with lung infarct ED Disposition - Plan for ED Patient: Referrals: Edd Ross MD [Primary Care Provider] -
[2019-04-28 09:35] LABS: Absolute Lymphocyte Count 1.58 X10^3/uL (0.83-4.51); Absolute Neutrophil Count 4.4 X10^3/uL (2.0-7.7); Basophil# 0.04 X10^3/uL; Basophil% 0.6 % (0-1); Eosinophils% 1.5 % (0-5); Hemoglobin 15.2 g/dL (13.0-16.5); Lymphocyte # 1.58 X10^3/ul (4.0); Lymphocyte % 23.4 % (19-41); Mean Corp Hgb Conc 34.5 g/dL (32-36); Mean Corpuscular Hgb 32.5 pg (27.0-32.0); Mean Platelet Vol. 8.6 fl (6.2-12.0); Monocyte# 0.57 X10^3/uL; Monocyte% 8.5 % (0-10); NRBC Flagged by Analyzer 0 % (0-5); Neutrophil # 4.43 X10^3/uL (2.7-7.7); Neutrophil % 65.7 % (47-70); Platelet Count 223 K/mm3 (150-450); RBC Distribution Width CV 11.9 % (11.6-14.6); RBC Distribution Width SD 41.3 fl (35.1-43.9); Red Blood Count 4.68 M/mm3 (4.6-6.2); White Blood Count 6.7 K/mm3 (4.4-11.0)
[2019-04-28] MEDS: Ondansetron 4 MG/2 ML Vial IV (09:35)
[2019-04-28] MEDS: Morphine 4 MG/ML Syringe IV ×5 (09:35→23:15)
[2019-04-28 09:51] LABS: ALB/GLOB Ratio 0.8 RATIO (0.9-2.4); AST(SGOT) 13 U/L (15-37); Alanine Aminotransfer ALT/SGPT 31 U/L (16-61); Albumin, Serum 3.7 g/dL (3.2-5.0); Alkaline Phosphatase 98 U/L (45-117); Anion Gap 7 (5-15); BUN 16 mg/dL (7-18); BUN/Creat Ratio 14.5 RATIO (10-20); Chloride 104 mmol/L (98-107); EST Glomerular Filtration Rate 77 mL/min (>60); Est Glom Filt Rate - Afr Amer 93 mL/min (>60); Estimated Creatinine Clearance 93.08 ml/min; Globulin 4.5 g/dL (2.2-4.2); Glucose 90 mg/dL (74-106); Potassium 4.3 mmol/L (3.5-5.1); Protein, Total 8.2 g/dL (6.4-8.2); Sodium Level 141 mmol/L (136-145)
[2019-04-28] MEDS: HYDROmorphone 1 MG/ML Syringe IV (09:55)
[2019-04-28 10:04] LABS: BNP,B-Type NATRIURETIC PEPTIDE < 2.0 pg/mL (0-100)
--- NOTE | 2019-04-28 10:12 | RAD_ITS ---
STUDY: X-RAY CHEST REASON FOR EXAM: Male, 43 years old. Cough. Shortness of breath. TECHNIQUE: PA and lateral views of the chest. COMPARISON: None. FINDINGS: EKG electrodes are seen. Bibasilar pulmonary infiltrates with small bilateral effusions slightly worse on the left side. Normal size heart. Normal mediastinum and mery. Normal visualized pulmonary arteries. There is atherosclerotic calcification of the aortic arch with tortuosity. Normal visualized thoracic spine. Normal visualized ribs, clavicles, and shoulders. There is no demonstrated abnormality of the visualized soft tissue structures of the upper abdomen. RAD/Chest PA and Lateral IMPRESSION: Bibasilar infiltrates worse on the left side with small bilateral effusions. Electronically Signed: Yahir Monreal, at 10:47 EDT , Service support ,
--- NOTE | 2019-04-28 10:56 | NURSING ---
DR JANICE ACKERMAN
--- NOTE | 2019-04-28 10:57 | HP.PCM_ITS ---
History of Present Illness Date of Admission: 04/28/19 Chief Complaint: left sided chest pain The patient is a 43 year old M with past medical history of factor V Leiden mutation and prothrombin gene mutation with resultant multiple bilateral LE DVTs and PEs. Patient was seen last week in the [facility] ED on account of shortness of breath and chest pain and was found to have bilateral PE. He was referred to [facility]. He had been on Eliquis at that time and this was subsequently switched to fondaparinux injections. Of note, patient had been on injection from the perineal prior to being started on Eliquis and missed about 3 doses when he went on vacation and subsequently came back with PE. He was then started on Eliquis but came in last week with chest pain was found to have bilateral PE. He was therefore switched back to fondaparinux last week. He presents today with a complaint of left-sided chest pain which has been worsening since he was discharged from [place] last . He has assisted shortness of breath which is mainly pleuritic. He describes pain is very severe and rates it about 10 out of 10 at its worse. Review of systems is otherwise negative. He claims compliance with his fondaparinux injections. [facility] [place] EKG showed sinus rhythm with no acute ST changes and labs were essentially unremarkable. Chest x-ray showed bilateral lower lobe infiltrates which were thought to be likely due to lung infarcts. Patient improved with pain meds in the ED but cannot ambulate without pain. He has been admitted to be managed for chest pain or shortness of breath likely due to lung infarct from bilateral PE. [] Past Medical History Medical History: Medical History (Last Updated 11/28/17 @ 15:23 by Julio Coleamn) Protein C deficiency D68.59 Allergies No Known Allergies Allergy (Verified 04/20/19 04:37) Home Medications: Ambulatory Orders Medication Instructions Recorded Fondaparinux Sodium [Arixtra] 7.5 mg SQ DAILY 04/28/19 Surgical History: noncontributory Psychiatric History: No pertinent psych hx Lives: Spouse/ Significant Other Smoking Status: Never smoker Alcohol: Occasional Drugs: None - *Family History Sibling History Items: - - factor V Leiden deficiency Review of Systems Constitutional: Reports: Weakness. Denies: Anorexia, Chills, Fever, Fatigue Eyes: Denies: Blurred vision HEENT: Denies: Head Aches, Sinus Congestion, Sinus Drainage Cardiovascular: Reports: Chest Pain. Denies: Chest Pressure, Chest Tightness, Edema, Heaviness, Light Headedness, Orthopnea, Palpitations, Paroxysmal Noc. Dyspnea Respiratory: Reports: Cough, Pleuritic Pain, Shortness of Breath, Shortness of breath at rest, Shortness of breath upon exertion. Denies: Sputum production, Wheezing Gastrointestinal: Denies: Abdominal Pain, Nausea, Vomiting Genitourinary: Denies: Dysuria Musculoskeletal: Reports: Arm Pain Skin: Denies: Rash, Wounds Neurological: Denies: Numbness, Tingling, Focal weakness Psychiatric: Denies: Anxiety, Depression, Homicidal Ideations, Suicidal Ideations Hematologic/ Lymphatic: Denies: Easy Bruising, Easy Bleeding VTE Information - Inpt Only VTE Present on Admission: Yes VTE Pharm Prophylaxis ordered?: Yes - Physical Exam General: Alert, Oriented x3, Cooperative, - - looks uncomfortable HEENT: Atraumatic, PERRLA, EOMI, Normocephalic Neck: Supple, No JVD, Negative Carotid Bruits Lungs: - - decreased breath sounds bibasally; patient taking very shallow breaths Cardiovascular: Regular rate, Regular Rhythm, Normal S1, Normal S2, No murmurs Abdomen: Bowel Sounds Present, Soft, Non Tender, Non-Distended, No Hepato- splenomegaly Extremities: No clubbing, No cyanosis, No edema, Capillary Refill Less than 3 Seconds Skin: No rashes, No breakdown Musculoskeletal: No Tenderness to Palpation of Joints or Extremities Lymphatic: No Cervical, Supraclavicular, or Inguinal Adenopathy Neurological: Cranial nerves II-XII grossly intact, Neuro grossly intact, Motor Exam 5/5 strength throughout Psych/Mental Status: - - looks very uncomfortable Vital Signs Temp Pulse Resp BP Pulse Ox 98.2 F 74 23 H 116/84 H 99 04/28/19 09:16 04/28/19 10:39 04/28/19 10:39 04/28/19 10:39 04/28/19 10:39 Oxygen Flow Rate (L/min) 2 Oxygen Delivery Method Nasal Cannula Weight: 191 lb Body Mass Index (BMI) 25.9 Laboratory Tests Past 24 Hrs 04/28/19 04/28/19 04/28/19 09:23 09:23 09:23 WBC 6.7 RBC 4.68 Hgb 15.2 Hct 44.0 MCV 94.0 MCH 32.5 H MCHC 34.5 RDW Std Deviation 41.3 RDW Coeff of Jj 11.9 Plt Count 223 MPV 8.6 Immature Gran % (Auto) 0.300 Neut % (Auto) 65.7 Lymph % (Auto) 23.4 Green % (Auto) 8.5 Eos % (Auto) 1.5 Baso % (Auto) 0.6 Absolute Neuts (auto) 4.4 Absolute Lymphs (auto) 1.58 Nucleated RBC % 0 Sodium 141 Potassium 4.3 Chloride 104 Carbon Dioxide 30.0 Anion Gap 7 BUN 16 Creatinine 1.10 Estim Creat Clear Calc 93.08 Est GFR (MDRD) Af Amer 93 Est GFR (MDRD) Non-Af 77 BUN/Creatinine Ratio 14.5 Glucose 90 Calcium 9.0 Total Bilirubin 0.50 AST 13 L ALT 31 Alkaline Phosphatase 98 Troponin I < 0.015 B-Natriuretic Peptide < 2.0 Total Protein 8.2 Albumin 3.7 Globulin 4.5 H Albumin/Globulin Ratio 0.8 L Diagnostic Data Chest X-Ray 04/28/19 10:12 IMPRESSION: Bibasilar infiltrates worse on the left side with small bilateral effusions. Electronically Signed: Yahir Monreal, at 10:47 EDT , Service support , Assessment/Plan 43-year-old male admitted with a complaint of shortness of breath and chest pain. 1. Lung infarct due to bilateral recent PE * admit to PCU with telemetry under observation * EKG showed no acute ST changes and CXR showed bilateral lower lobe infiltrates * However has no fever or productive cough and elevated white cell count so I do not think that this is a pneumonia but is more likely due to lung infarct from his recent PE last week. * We will put patient on IV morphine 4 mg every 3 hours as needed * Incentive spirometry. * Treat oxygen to maintain saturation above 90%. * 2. Recent bilateral PE due to the 5 Leiden deficiency and prothrombin gene mutation * Continue fondaparinux injections. * VT prophylaxis: As above. Code Visit OBSV E&M: 67980 Initial observation care L3
--- NOTE | 2019-04-28 10:59 | NURSING ---
PCU BILATERAL PE, CP KORAM
[2019-04-28] MEDS: Ketorolac 15 MG/ML Vial IV (11:30)
[2019-04-28] MEDS: 0.9% NaCl Peripheral Flush Adult/Peds IV ×2 (12:55→17:03)
[2019-04-29] VITALS (11 sets, daily range): BP systolic 100–121; BP diastolic 63–80; PULSE 66–76; RESP 16–24; TEMP 36.4–36.9; O2SAT 93–97
[2019-04-29] MEDS: oxyCODONE 5 MG Tablet 10 MG PO ×6 (00:55→22:32)
[2019-04-29] MEDS: Morphine 4 MG/ML Syringe IV ×2 (02:04→08:32)
[2019-04-29 06:21] LABS: Absolute Lymphocyte Count 1.87 X10^3/uL (0.83-4.51); Basophil# 0.03 X10^3/uL; Basophil% 0.5 % (0-1); Eosinophil# 0.13 X10^3/uL; Eosinophils% 2.2 % (0-5); Hematocrit 35.8 % (40-54); Hemoglobin 12.2 g/dL (13.0-16.5); Lymphocyte # 1.87 X10^3/ul (4.0); Lymphocyte % 32.1 % (19-41); Mean Corp Hgb Conc 34.1 g/dL (32-36); Mean Corpuscular Hgb 32.4 pg (27.0-32.0); Mean Platelet Vol. 8.8 fl (6.2-12.0); Monocyte# 0.73 X10^3/uL; Monocyte% 12.5 % (0-10); NRBC Flagged by Analyzer 0 % (0-5); Neutrophil # 3.04 X10^3/uL (2.7-7.7); Neutrophil % 52.4 % (47-70); Platelet Count 214 K/mm3 (150-450); RBC Distribution Width CV 11.9 % (11.6-14.6); RBC Distribution Width SD 41.5 fl (35.1-43.9); Red Blood Count 3.77 M/mm3 (4.6-6.2); White Blood Count 5.8 K/mm3 (4.4-11.0)
[2019-04-29 06:43] LABS: Anion Gap 3 (5-15); BUN 20 mg/dL (7-18); BUN/Creat Ratio 16.1 RATIO (10-20); Calcium,Total 8.3 mg/dL (8.5-10.1); Chloride 104 mmol/L (98-107); Creatinine, Serum 1.24 mg/dL (0.70-1.30); EST Glomerular Filtration Rate 67 mL/min (>60); Est Glom Filt Rate - Afr Amer 81 mL/min (>60); Estimated Creatinine Clearance 82.57 ml/min; Glucose 95 mg/dL (74-106); Potassium 4.3 mmol/L (3.5-5.1); Sodium Level 137 mmol/L (136-145)
[2019-04-29] MEDS: 0.9% NaCl Peripheral Flush Adult/Peds IV (08:33)
--- NOTE | 2019-04-29 10:23 | PN_ITS ---
Subjective: Patient seen and examined. He still complains of pain which is worsened with ambulation. Review of systems otherwise negative. His breathing is a bit better but patient is not comfortable going home today because of the pain. Labs and vitals reviewed. He still remains mildly tachypneic on account of the pain. Vitals/I&O's: Vital Signs Temp Pulse Resp BP Pulse Ox 98.4 F 76 24 H 100/63 96 04/29/19 08:30 04/29/19 08:30 04/29/19 08:30 04/29/19 08:30 04/29/19 08:30 Oxygen Flow Rate (L/min) 2 Oxygen Delivery Method Room Air Weight: 190 lb Body Mass Index (BMI) 25.7 Intake and Output for Last 24 Hours 04/27/19 04/28/19 04/29/19 23:59 23:59 23:59 Intake Total 1900 / 1900 500 / 500 Balance 1900 / 1900 500 / 500 General: Alert, Oriented x3, Cooperative, HEENT: Atraumatic, PERRLA, EOMI, Normocephalic Neck: Supple, No JVD, Negative Carotid Bruits Lungs: - - decreased breath sounds bibasally; Cardiovascular: Regular rate, Regular Rhythm, Normal S1, Normal S2, No murmurs Abdomen: Bowel Sounds Present, Soft, Non Tender, Non-Distended, No Hepato- splenomegaly Extremities: No clubbing, No cyanosis, No edema, Capillary Refill Less than 3 Seconds Skin: No rashes, No breakdown Musculoskeletal: No Tenderness to Palpation of Joints or Extremities Lymphatic: No Cervical, Supraclavicular, or Inguinal Adenopathy Neurological: Cranial nerves II-XII grossly intact, Neuro grossly intact, Motor Exam 5/5 strength throughout Psych/Mental Status: - -normal, appropriate Laboratory Results 04/29/19 05:50: WBC 5.8, RBC 3.77 L, Hgb 12.2 L, Hct 35.8 L, MCV 95.0 H, MCH 32.4 H, MCHC 34.1, RDW Std Deviation 41.5, RDW Coeff of Jj 11.9, Plt Count 214, MPV 8.8, Immature Gran % (Auto) 0.300, Neut % (Auto) 52.4, Lymph % (Auto) 32.1, Summers % (Auto) 12.5 H, Eos % (Auto) 2.2, Baso % (Auto) 0.5, Absolute Neuts (auto) 3.0, Absolute Lymphs (auto) 1.87, Nucleated RBC % 0 04/29/19 06:00: Sodium 137, Potassium 4.3, Chloride 104, Carbon Dioxide 30.0, Anion Gap 3 L, BUN 20 H, Creatinine 1.24, Estim Creat Clear Calc 82.57, Est GFR (MDRD) Af Amer 81, Est GFR (MDRD) Non-Af 67, BUN/Creatinine Ratio 16.1, Glucose 95, Calcium 8.3 L Diagnostic Data Chest X-Ray 04/28/19 10:12 IMPRESSION: Bibasilar infiltrates worse on the left side with small bilateral effusions. Electronically Signed: Yahir Monreal, at 10:47 EDT , Service support , Current Medications Dextrose (D50w Syringe) 0 gm IV X1 PRN; Protocol PRN Reason: Hypoglycemia Fondaparinux (Arixtra) 7.5 mg SQ DAILY@2100 ELEN Last Admin: 04/28/19 21:14 Dose: 7.5 mg Documented by: Glucagon () 1 mg IM .X1 PRN PRN Reason: Hypoglycemia Morphine Sulfate () 4 mg IV Q3H PRN PRN PRN Reason: Severe pain (7-10/10) Last Admin: 04/29/19 08:32 Dose: 4 mg Documented by: Ondansetron HCl (Zofran) 4 mg IV Q8H PRN PRN PRN Reason: NAUSEA/VOMITING Oxycodone HCl (Oxyir) 10 mg PO Q4H PRN PRN PRN Reason: SEVERE PAIN (6-10/10) Last Admin: 04/29/19 10:13 Dose: 10 mg Documented by: Sodium Chloride () 10 - 40 ml IV UD PRN PRN Reason: SALINE FLUSH Last Admin: 04/29/19 08:33 Dose: 10 ml Documented by: Medical Necessity - Tobacco Use Smoking Status: Former smoker Assessment/Plan 43-year-old male admitted with a complaint of shortness of breath and chest pain. 1. 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 Recent bilateral PE due to the 5 Leiden deficiency and prothrombin gene mutation * Continue fondaparinux injections. * VT prophylaxis: As above. Disposition: for likely DC tomorrow Code Visit OBSV E&M: 47577 Subsequent observation care L2
[2019-04-30 03:00] VITALS: PULSE 61
[2019-04-30 03:10] VITALS: BP 111/73; PULSE 62; RESP 18; TEMP 36.8; O2SAT 95
[2019-04-30] MEDS: oxyCODONE 5 MG Tablet 10 MG PO ×2 (04:06→08:23)
[2019-04-30 07:06] VITALS: PULSE 70
[2019-04-30 08:18] VITALS: BP 116/78; PULSE 70; RESP 18; TEMP 37.1; O2SAT 95
--- NOTE | 2019-04-30 10:04 | DCINST_ITS ---
You will use the following diet at home:: No restrictions Your food should be the consistency of: Regular Your liquids should be the consistency of: Regular/Thin Discharge Activity: Return to Normal Activity Weight Bearing Status: Weight bearing as tolerated Call your doctor if you observe: Shortness of breath, Uncontrolled pain Instructions: Pulmonary Embolism Allergies/Adverse Reactions: Allergies No Known Allergies Allergy (Verified 04/20/19 04:37) Medications to take at Discharge Fondaparinux Sodium [Arixtra] 7.5 mg SQ DAILY 04/28/19 Oxycodone [Oxyir] 10 mg PO Q6H PRN PRN 3 Days #12 tab 04/30/19 The following prescriptions were given: Oxycodone [Oxyir] 10 mg PO Q6H PRN PRN 3 Days #12 tab PRN Reason: Severe Pain (-05/28) Prescription Printed Primary Care Physician: Edd Ross MD [Primary Care Provider] - Please follow up with your Primary Care Physician in: one week Test Results: Test results from this visit will be discussed in further detail at your follow- up appointment, if applicable. When: follow up with clam shucking machine tender in [facility] in 1-2 weeks Proposed Discharge Date: 04/30/19
--- NOTE | 2019-04-30 10:06 | PCM.DC.SUM ---
Discharge Date and Diagnosis Date of Admission: 04/28/19 Date of Discharge: 04/30/19 - Primary Discharge Diagnosis acute lung infarct due to bilateral PE Hospital Course and Treatment Imaging Results: Diagnostic Data Chest X-Ray 04/28/19 10:12 IMPRESSION: Bibasilar infiltrates worse on the left side with small bilateral effusions. Electronically Signed: Yahir Monreal, at 10:47 EDT , Service support , Operations: None Procedures: None Summary of Care Provided: The patient is a 43 year old M with past medical history of factor V Leiden mutation and prothrombin gene mutation with resultant multiple bilateral LE DVTs and PEs. Patient was seen last week in the [facility] ED on account of shortness of breath and chest pain and was found to have bilateral PE. He was referred to [facility]. He had been on Eliquis at that time and this was subsequently switched to fondaparinux injections. Of note, patient had been on fondaparinux injections prior to being started on Eliquis and missed about 3 doses when he went on vacation and subsequently came back with PE. He was then started on Eliquis but came in last week with chest pain was found to have bilateral PE. He was therefore switched back to fondaparinux last week. He presents today with a complaint of left-sided chest pain which has been worsening since he was discharged from [place] last . He has assisted shortness of breath which is mainly pleuritic. He describes pain is very severe and rates it about 10 out of 10 at its worse. Review of systems is otherwise negative. He claims compliance with his fondaparinux injections. [facility] [place]. EKG showed sinus rhythm with no acute ST changes and labs were essentially unremarkable. Chest x-ray showed bilateral lower lobe infiltrates which were thought to be likely due to lung infarcts. Patient improved with pain meds in the ED but cannot ambulate without pain. He was admitted to be managed for chest pain or shortness of breath likely due to lung infarct from bilateral PE. He was started on IV morphine prn for pain. Pain gradually improved and over the next 2 days of admission. Patient shallow breathing also resolved and he was able to ambulate well. He was discharged on 04/30/2019 with a prescription for p.o. oxycodone 10 mg every 6 hours as needed for total of 12 pills, for 3 days. OARRS score was checked and no red flags were seen. He is to follow-up with his primary care doctor and also counseled to follow-up with his powerbuilder at the [facility] in [place]. Patient also counseled strongly that he should endeavor to never miss a dose of his Arixtra shots. Patient seen and examined prior to discharge. He had no complaints and felt well. Review of systems otherwise negative. Pain was now better. Labs and vitals reviewed. Home medication reviewed and reconciled. o/e: Vital Signs Height 6 ft Weight: 190 lb Weight in Pounds 190.0 lbs Pulse Ox 95 Temperature 98.7 F Pulse Rate 70 Respiratory Rate 18 Blood Pressure 116/78 Blood Pressure Position Semi-Fowlers General: Alert, Oriented x3, Cooperative, HEENT: Atraumatic, PERRLA, EOMI, Normocephalic Neck: Supple, No JVD, Negative Carotid Bruits Lungs: - - clear to auscultation, no wheezes or crackles Cardiovascular: Regular rate, Regular Rhythm, Normal S1, Normal S2, No murmurs Abdomen: Bowel Sounds Present, Soft, Non Tender, Non-Distended, No Hepato-splenomegaly Extremities: No clubbing, No cyanosis, No edema, Capillary Refill Less than 3 Seconds Skin: No rashes, No breakdown Musculoskeletal: No Tenderness to Palpation of Joints or Extremities Lymphatic: No Cervical, Supraclavicular, or Inguinal Adenopathy Neurological: Cranial nerves II-XII grossly intact, Neuro grossly intact, Motor Exam 5/5 strength throughout Psych/Mental Status: - -normal, appropriate Plan as above. - Physical Exam Vital Signs Temp Pulse Resp BP Pulse Ox 98.7 F 70 18 116/78 95 04/30/19 08:18 04/30/19 08:18 04/30/19 08:18 04/30/19 08:18 04/30/19 08:18 Oxygen Flow Rate (L/min) 2 Oxygen Delivery Method Room Air Weight: 190 lb Body Mass Index (BMI) 25.7 Intake and Output for Last 24 Hours 04/28/19 04/29/19 04/30/19 23:59 23:59 23:59 Intake Total 1900 / 1900 1460 / 1460 120 / 120 Balance 1900 / 1900 1460 / 1460 120 / 120 Discharge Diet: No Restrictions Discharge Activity: Return to Normal Activity Weight Bearing Status: Weight bearing as tolerated Call your doctor if you observe: Shortness of breath, Uncontrolled pain Home Medications: Medications to take at Discharge Fondaparinux Sodium [Arixtra] 7.5 mg SQ DAILY 04/28/19 Oxycodone [Oxyir] 10 mg PO Q6H PRN PRN 3 Days #12 tab 04/30/19 Following Prescrptions Were Given to Patient: Oxycodone [Oxyir] 10 mg PO Q6H PRN PRN 3 Days #12 tab PRN Reason: Severe Pain (-05/28) Prescription Printed Primary Care Physician: Edd Ross MD [Primary Care Provider] - Please follow up with your Primary Care Physician in: one week When: follow up with powerbuilder in [facility] in 1-2 weeks Patient Instructions: Pulmonary Embolism Disposition: Home Minutes spent on discharge:: 35 Patient Condition:: Stable Medical Necessity - Tobacco Use Smoking Status: Former smoker Meaningful Use Info Meaningful Use Diagnoses (Choose all that apply): None applicable Code Visit OBSV E&M: 12781 Observation care discharge
--- NOTE | 2019-04-30 10:45 | PCM.WORK.EX ---
Work/School Excuse Please excuse this person from:: Work From: 04/30/19 through: 05/06/19 Restrictions: Light Duty
== END 2019-04-30 10:06 | disposition home or self-care (01) ==
LOC: ED 10:29 → PCU 11:12
PROVIDERS: Admitting Provider Student in an Organized Health Care Education/Training Program; Emergency Provider Emergency Medicine; Family Provider Family Medicine; PCP Family Medicine; Referring Provider Student in an Organized Health Care Education/Training Program; Visit Provider Student in an Organized Health Care Education/Training Program
DX: I26.99 Other pulmonary embolism without acute cor pulmonale (principal); D68.51 Activated protein C resistance; D68.52 Prothrombin gene mutation; Z87.891 Personal history of nicotine dependence; R06.02 Shortness of breath
CPT/HCPCS: 71046; 80048; 80053; 83880; 84484; 85025; 93005; 96372; 96374; 96375; 96376; 99218; 99285; J7040; A4216; G0378; J2405

== ENCOUNTER 2020-03-04 20:09 | Emergency (ER) | payer OTHER, SELFPAY ==
[2019-04-28 11:56] VITALS: BMI 25.7
[2020-03-04 20:11] VITALS: BP 125/92; PULSE 111; RESP 18; TEMP 36.8; O2SAT 95; BMI 27.1
[2020-03-04 20:31] VITALS: O2SAT 95
--- NOTE | 2020-03-04 20:48 | RAD_ITS ---
STUDY: X-RAY CHEST REASON FOR EXAM: Male, 44 years old. cough, sob, sinus pressure, fever this AM TECHNIQUE: AP portable COMPARISON: April 28, 2019 FINDINGS: Interstitial thickening in the lower lobes with slightly increased density possibly representing atypical viral pneumonia.. There is no demonstrated pleural abnormality. Normal size heart. Normal mediastinum and mery. Normal visualized pulmonary arteries. Normal visualized aortic arch and descending thoracic aorta. Normal visualized thoracic spine. Normal visualized ribs, clavicles, and shoulders. There is no demonstrated abnormality of the visualized soft tissue structures of the upper abdomen. RAD/Chest 1 View (Portable) IMPRESSION: Findings which may be consistent with mild bibasilar interstitial pneumonia. Clinical correlation recommended to exclude Covid 19 pneumonia Electronically Signed: Clay Patel MD at 21:55 EDT , Service support ,
--- NOTE | 2020-03-04 20:51 | ED.VISSUMM ---
- ER Visit Summary Date of Service: 03/04/20 Chief Complaint: Cough, sore throat, and fever History of Present Illness: The patient is a 44 M who presents with cough, sore throat, and fever that began today. Patient states his temperature at home was 100.1. Patient states he feels congested in his throat and nose. Patient admits to some shortness of breath and cough. Patient denies any sputum production. Patient does admit to some myalgias. Patient states he did have a headache this morning but currently denies any headache. Patient denies any nausea, vomiting, or diarrhea. Patient denies any chest pain. Physical Examination: Vital signs are stable except for mild tachycardia of 111. Patient is afebrile here. Patient is in no acute distress. Oral mucosa is pink and moist. There is mild erythema of the oropharynx. There are no exudates. Neck is supple. Trachea is midline. There is no JVD. Heart was regular rate and rhythm. Lungs are clear and equal bilaterally. Abdomen is soft. Bowel sounds are normal. There is no tenderness. Extremities are intact. There is no calf tenderness or edema. Cranial nerves II through XII are intact. There are no focal motor or sensory deficits noted. Test Results: CBC was normal. Comprehensive metabolic profile was essentially within normal limits. PT with INR and PTT were normal. Portable chest x-ray was obtained. There is no acute cardiopulmonary process. This was interpreted by the radiologist and reviewed by myself. D-dimer was slightly elevated at 0.58. Because of this, CTA of the chest was obtained. There is a tiny pulmonary emboli within the sub-segmental vessels in the lower lobes which is improved since prior exam. There is some minor emphysematous changes noted. There is no acute process noted. This was interpreted by the radiologist and reviewed by myself. Emergency Department Course and Treatment: Patient was feeling better on reevaluation. Patient was instructed to continue his anticoagulant as previously prescribed. Patient was instructed to follow-up with his primary care physician in 5 to 7 days. Patient was given COVID precaution instructions. Patient understood and was agreeable with the plan. All questions were answered. Disposition: Discharge home Impression: Upper respiratory infection This note was generated with [employer] dictation software. It may contain incorrect words, spelling, and punctuation that were not noted in review of the chart prior to signing ED Disposition - Plan for ED Patient: Disposition: Home or Assisted Living Diagnosis: Viral upper respiratory infection Instructions: ED URI Viral Referrals: Edd Ross MD [Primary Care Provider] - 5-7 Days
[2020-03-04 21:19] LABS: Absolute Lymphocyte Count 1.06 X10^3/uL (0.83-4.51); Absolute Neutrophil Count 3.8 X10^3/uL (2.0-7.7); Basophil# 0.02 X10^3/uL; Basophil% 0.4 % (0-1); Eosinophil# 0.03 X10^3/uL; Eosinophils% 0.6 % (0-5); Hemoglobin 14.2 g/dL (13.0-16.5); Lymphocyte # 1.06 X10^3/ul (4.0); Lymphocyte % 19.8 % (19-41); Mean Corp Hgb Conc 34.6 g/dL (32-36); Mean Corpuscular Hgb 32.7 pg (27.0-32.0); Mean Corpuscular Volume 94.5 fL (80-94); Monocyte# 0.46 X10^3/uL; Monocyte% 8.6 % (0-10); NRBC Flagged by Analyzer 0 % (0-5); Neutrophil # 3.77 X10^3/uL (2.7-7.7); Neutrophil % 70.4 % (47-70); Platelet Count 192 K/mm3 (150-450); RBC Distribution Width CV 11.9 % (11.6-14.6); RBC Distribution Width SD 41.6 fl (35.1-43.9); Red Blood Count 4.34 M/mm3 (4.6-6.2); White Blood Count 5.4 K/mm3 (4.4-11.0)
[2020-03-04 21:36] LABS: ALB/GLOB Ratio 1.1 RATIO (0.9-2.4); AST(SGOT) 20 U/L (15-37); Alanine Aminotransfer ALT/SGPT 39 U/L (16-61); Alkaline Phosphatase 59 U/L (45-117); Anion Gap 4 (5-15); BUN 12 mg/dL (7-18); BUN/Creat Ratio 10.1 RATIO (10-20); Calcium,Total 8.5 mg/dL (8.5-10.1); Chloride 109 mmol/L (98-107); Creatinine, Serum 1.19 mg/dL (0.70-1.30); EST Glomerular Filtration Rate 70 mL/min (>60); Est Glom Filt Rate - Afr Amer 85 mL/min (>60); Estimated Creatinine Clearance 82.61 ml/min; Globulin 3.5 g/dL (2.2-4.2); Glucose 132 mg/dL (74-106); Potassium 4.1 mmol/L (3.5-5.1); Protein, Total 7.5 g/dL (6.4-8.2); Prothrombin Time (Protime)PT. 12.6 SECONDS (11.7-14.9); Sodium Level 143 mmol/L (136-145)
[2020-03-04 21:37] LABS: Partial Thromboplast Time 32.2 Seconds (24.1-36.2)
[2020-03-04 21:40] LABS: D-Dimer Quantitative (DVT/PE) 0.58 FEU/ug/m (0.27-0.49)
--- NOTE | 2020-03-04 21:47 | CT_ITS ---
STUDY: CTA CHEST REASON FOR EXAM: Male, 44 years old. ELEVATED D-DIMER,SORE THROAT, RUNNY NOSE, FEVER, COUGH, DVT, PE IN PAST X 2, CURRENT BLOOD THINNER, PT HAS FACTOR 5 LIDEN RADIATION DOSAGE (If Supplied By Facility): CTDIvol = ( 14.03 ) mGy, DLP = ( 480.29 ) mGycm TECHNIQUE: The examination was performed with the intravenous administration of IV 100mL Isovue-300. Post-processing of the angiographic images was performed, with multiplanar reformation and 3D reconstruction. Individualized dose optimization techniques were used for this CT. COMPARISON: April 20, 2019 FINDINGS: Normal enhancement of the main pulmonary artery and right and left pulmonary arteries. There are tiny clots noted within the subsegmental vessels in both lower lobes.. Normal thoracic aorta and visualized great vessels. There is no demonstrated aortic dissection. Heart is normal size. There is mild coronary artery calcification. Normal mediastinum. Normal hilar regions. Normal visualized trachea and bronchi. The lungs are well expanded. There is mild diffuse interstitial thickening and centrilobular centers blebs. There is minor atelectasis within the dependent portion of the left lung and there is subsegmental atelectasis in the right upper lobe There is a well-rounded noncalcified nodule in the superior segment of the right lower lobe of indeterminate etiology. Normal pleura. Normal chest wall structures. Dorsal spine demonstrates degenerative change Normal visualized upper abdomen. There is improvement in the pulmonary emboli when compared to previous exam. There is also improved aeration since previous study CT/CTA Chest W/WO Contrast IMPRESSION: Tiny pulmonary emboli within the subsegmental vessels in the lower lobes with generalized interval improvement since prior exam. Minor interstitial emphysematous changes minor atelectasis within the dependent portion of left lung and subsegmental atelectasis in the right upper lobe. Tiny nodule in the superior segment of the right lower lobe of indeterminate etiology. Would recommend additional imaging utilizing Fleischner Society criteria Electronically Signed: Clay Patel MD at 22:41 EDT , Service support ,
[2020-03-04 23:31] VITALS: BP 132/99; PULSE 72; RESP 18; O2SAT 96
== END 2020-03-04 23:48 | disposition home or self-care (01) ==
PROVIDERS: Emergency Provider Emergency Medicine; PCP Family Medicine
DX: J06.9 Acute upper respiratory infection, unspecified (principal); Z86.718 Personal history of other venous thrombosis and embolism
CPT/HCPCS: 71045; 71275; 80053; 85025; 85379; 85610; 85730; 87635; 87804; 87880; 99284; Q9967; U0003

== ENCOUNTER → 2020-05-31 12:18 | Outpatient (CLI) | payer OTHER, SELFPAY ==
[2020-05-31 15:43] LABS: Absolute Lymphocyte Count 0.98 X10^3/uL (0.83-4.51); Absolute Neutrophil Count 1.1 X10^3/uL (2.0-7.7); Basophil# 0.01 X10^3/uL; Basophil% 0.4 % (0-1); Eosinophil# 0.01 X10^3/uL; Eosinophils% 0.4 % (0-5); Hematocrit 45.1 % (40-54); Hemoglobin 14.9 g/dL (13.0-16.5); Lymphocyte # 0.98 X10^3/ul (4.0); Lymphocyte % 42.1 % (19-41); Mean Corpuscular Hgb 31.5 pg (27.0-32.0); Mean Corpuscular Volume 95.3 fL (80-94); Monocyte# 0.25 X10^3/uL; Monocyte% 10.7 % (0-10); NRBC Flagged by Analyzer 0 % (0-5); Neutrophil # 1.07 X10^3/uL (2.7-7.7); POSITIVE MORPHOLOGY YES; Platelet Count 184 K/mm3 (150-450); RBC Distribution Width CV 12.2 % (11.6-14.6); RBC Distribution Width SD 43.6 fl (35.1-43.9); Red Blood Count 4.73 M/mm3 (4.6-6.2); White Blood Count 2.3 K/mm3 (4.4-11.0)
[2020-05-31 16:10] LABS: Differential Indicated SCAN CRITERIA MET
[2020-05-31 16:14] LABS: ALB/GLOB Ratio 0.8 RATIO (0.9-2.4); AST(SGOT) 32 U/L (15-37); Alanine Aminotransfer ALT/SGPT 44 U/L (16-61); Albumin, Serum 3.6 g/dL (3.2-5.0); Alkaline Phosphatase 78 U/L (45-117); Anion Gap 8 (5-15); BUN 10 mg/dL (7-18); BUN/Creat Ratio 10.8 RATIO (10-20); Calcium,Total 8.6 mg/dL (8.5-10.1); Chloride 104 mmol/L (98-107); Creatinine, Serum 0.93 mg/dL (0.70-1.30); EST Glomerular Filtration Rate 93 mL/min (>60); Est Glom Filt Rate - Afr Amer 112 mL/min (>60); Globulin 4.3 g/dL (2.2-4.2); Glucose 78 mg/dL (74-106); Potassium 4.1 mmol/L (3.5-5.1); Protein, Total 7.9 g/dL (6.4-8.2); Sodium Level 139 mmol/L (136-145)
[2020-05-31 16:37] LABS: Anisocytosis RARE; Erythrocyte Sedimentation Rate 28 mm/hr (0-15); Macrocytosis RARE; Platelet Estimate ADEQUATE (ADEQ); Red Cell Morphology N CHROM NORMAL (NORM C&C)
[2020-06-02 16:55] LABS: EBV Acute VCA IgM < 36.0 U/mL (0.0-35.9); EBV Nuclear Antigen IgG > 600.0 U/mL (0.0-17.9)
== END ==
PROVIDERS: PCP Family Medicine; Referring Provider Family Medicine; Visit Provider Family Medicine
DX: R50.9 Fever, unspecified (principal); R63.0 Anorexia
CPT/HCPCS: 36415; 80053; 85025; 85652; 86664; 86665